=== PATIENT | female | born 1955 | race Caucasian/White ===

== ENCOUNTER 2023-03-23 10:33 | Outpatient (CLI) | payer BC, MEDICAID ==
[~2023-03-23] VITALS: Ht 162.6 cm; Wt 81.6 kg
[2023-03-23] MEDS: albuterol 2.5 MG/3 ML nebule NEB ONE (11:05)
[2023-03-23 11:08] VITALS: PULSE 78; RESP 13; O2SAT 89
== END 2023-03-23 23:59 | disposition home or self-care (01) ==
LOC: RT 10:33
PROVIDERS: ATTEND Internal Medicine Pulmonary Disease
DX: I27.20 Pulmonary hypertension, unspecified (principal); R06.02 Shortness of breath; R94.2 Abnormal results of pulmonary function studies
CPT/HCPCS: 94060; 94727; 94729; 94760